=== PATIENT | female | born 1990 | race Hispanic/Latino ===

== ENCOUNTER 2018-10-18 07:30 | Emergency (ER) | payer SELFPAY ==
[2018-10-18] MEDS ORDERED: ONDANSETRON 4 MG/2 ML VIAL ONE (08:15)
[2018-10-18] MEDS ORDERED: MECLIZINE HCL 12.5 MG TAB ONE (08:15)
[2018-10-18] MEDS ORDERED: NA CHLORIDE 0.9% 1,000 ML ONE (08:15)
[2018-10-18 08:35] LABS: Absolute Monocytes 0.4 K/uL (0.1-1.3); Absolute Neutrophil 4.1 K/uL (1.8-8.0); Basophils % 0.9 % (0-1.3); Eosinophils % 0.8 % (0-4.4); Hematocrit 39.4 % (36.0-45.0); MCH 31.6 pg (27.0-35.0); MCV 92.8 fL (80-100); MPV 8.8 fL (7.6-11.3); Monocytes % 6.3 % (3.3-12.3); RBC Red Blood Cell Count 4.24 M/uL (3.86-4.86)
[2018-10-18 08:45] LABS: Albumin 3.6 g/dL (3.4-5.0); Bilirubin Total 0.3 mg/dL (0.2-1.0); Potassium 3.8 mmol/L (3.5-5.1); Protein, Total 7.9 g/dL (6.4-8.2)
--- NOTE | 2018-10-18 08:50 | ER ---
Nurse's Notes [facility] Name: Howie Wong Age: 27 yrs Sex: Female : 1990 Arrival Date: 10/18/2018 Time: 07:39 Bed 19 Private MD: None, None Diagnosis: Dizziness and giddiness;Vertiginous syndromes in diseases classified elsewhere, unspecified ear Presentation: 10/18 07:49 Presenting complaint: Patient states: Woke up at 0440 this AM with dizziness, nausea ss and bilateral hand tingling. Pt denies pain. Transition of care: patient was not received from another setting of care. Onset of symptoms was October 18, 2018 at 04:40. Risk Assessment: Do you want to hurt yourself or someone else? Patient reports no desire to harm self or others. Initial Sepsis Screen: Does the patient meet any 2 criteria? No. Patient's initial sepsis screen is negative. Does the patient have a suspected source of infection? No. Patient's initial sepsis screen is negative. Care prior to arrival: None. 07:49 Method Of Arrival: Wheelchair ss 07:49 Acuity: CRISTINA 3 ss RN ACUTE DIALYSIS: 08:35 LMP 10/18/2018 em Historical: - Allergies: 07:52 No Known Allergies; ss - Home Meds: 07:52 None [Active]; ss - PMHx: 07:52 Asthma; ss - PSHx: 07:52 ; ss - Immunization history:: Adult Immunizations up to date. - Social history:: Smoking status: Patient/guardian denies using tobacco. - Ebola Screening: : Patient denies exposure to infectious person Patient denies travel to an Ebola-affected area in the 21 days before illness onset. Screenin:56 Abuse screen: Denies threats or abuse. Nutritional screening: No deficits noted. em Tuberculosis screening: No symptoms or risk factors identified. Fall Risk None identified. Assessment: 08:05 General: Appears in no apparent distress. comfortable, Behavior is calm, cooperative, em anxious. Pain: Denies pain. Neuro: Level of Consciousness is awake, alert, obeys commands, Oriented to person, place, time, situation, Speech is normal, Reports dizziness, numbness in right hand and left hand paresthesias Denies blurred vision headache. Cardiovascular: Denies chest pain, shortness of breath, Capillary refill < 3 seconds Patient's skin is warm and dry. Respiratory: Airway is patent Respiratory effort is even, unlabored, Respiratory pattern is regular, symmetrical, Breath sounds are clear bilaterally. GI: Abdomen is round non-distended, Abd is soft and non tender X 4 quads. : No signs and/or symptoms were reported regarding the genitourinary system. EENT: No signs and/or symptoms were reported regarding the EENT system. Derm: Skin is intact, is healthy with good turgor, Skin is pink, warm \T\ dry. Musculoskeletal: Circulation, motion, and sensation intact. Range of motion: intact in all extremities. 08:15 Reassessment: The previous assessment is accurate, call light remains within reach. ss 08:46 Reassessment: reports dizziness when pt sat up to go to the restroom, orthostatic BP em taken, provider notified, will continue to monitor. 08:50 Reassessment: Patient appears in no apparent distress at this time. pt ambulated to em restroom with assistance from significant other, reports dizziness worse with standing, provider notified. 09:06 Reassessment: Patient appears in no apparent distress at this time. Patient and/or em family updated on plan of care and expected duration. Pain level reassessed. Patient is alert, oriented x 3, equal unlabored respirations, skin warm/dry/pink. pt will be discharged after completion of IV 1 L NS. 09:47 Reassessment: Patient appears in no apparent distress at this time. Patient and/or em family updated on plan of care and expected duration. Pain level reassessed. Patient is alert, oriented x 3, equal unlabored respirations, skin warm/dry/pink. Patient denies pain at this time. Patient states feeling better. Patient states symptoms have improved. Vital Signs: 07:52 BP 118 / 70; Pulse 64; Resp 16; Temp 98.1(O); Pulse Ox 99% on R/A; Height 5 ft. 6 in. ss (167.64 cm); Pain 0/10; 08:33 BP 117 / 76 Supine; Pulse 59; Resp 18; Pulse Ox 100% on R/A; Pain 0/10; em 08:50 BP 112 / 81 Supine; Pulse 65; em 08:50 BP 115 / 57 Standing; Pulse 66; em 09:47 BP 102 / 61; Pulse 53; Resp 16; Pulse Ox 99% on R/A; em ED Course: 07:39 Patient arrived in ED. dl4 07:40 None, None is Private Physician. dl4 07:41 Orlin Escudero MD is Attending Physician. marie 07:46 Praveen Hutchison LVN is Primary Nurse. em 07:52 Triage completed. ss 07:52 Arm band placed on right wrist. ss 07:56 Patient has correct armband on for positive identification. Placed in gown. Bed in low em position. Call light in reach. Adult w/ patient. 08:10 Initial lab(s) drawn, by me, sent to lab. Inserted saline lock: 20 gauge in right em antecubital area, using aseptic technique. Blood collected. 08:50 Eros Ferrera MD is Referral Physician. marie 09:47 No provider procedures requiring assistance completed. IV discontinued, intact, em bleeding controlled, No redness/swelling at site. Pressure dressing applied. Administered Medications: 08:10 Drug: Zofran 4 mg Route: IVP; Site: right antecubital; ss 09:03 Follow up: Response: No adverse reaction; Nausea is decreased em 08:12 Drug: NS 0.9% 1000 ml Route: IV; Rate: 1 bolus; Site: right antecubital; em 09:46 Follow up: IV Status: Completed infusion; IV Intake: 1000ml em 08:12 Drug: Meclizine 50 mg Route: PO; em 09:46 Follow up: Response: No adverse reaction; Marked relief of symptoms em Intake: 09:46 IV: 1000ml; Total: 1000ml. em Outcome: 08:50 Discharge ordered by . marie 09:47 Discharged to home ambulatory, with family. em 09:47 Condition: good 09:47 Discharge instructions given to patient, family, Instructed on discharge instructions, follow up and referral plans. medication usage, Demonstrated understanding of instructions, follow-up care, medications, Prescriptions given X 2. 09:48 Patient left the ED. em Signatures: Orlin Escudero MD MD cha Munoz, Edgar, WASHERY ENGINEER WASHERY ENGINEER em Ligia Gomez, EVIE RN Rene Brian dl4 Corrections: (The following items were deleted from the chart) 09:03 08:33 BP 117 / 76; Pulse 59bpm; Resp 18bpm; Pulse Ox 100% RA; Pain 0/10; em em
--- NOTE | 2018-10-18 08:50 | EDPHYS ---
Physician Documentation [facility] Name: Howie Wong Age: 27 yrs Sex: Female : 1990 Arrival Date: 10/18/2018 Time: 07:39 Bed 19 Private MD: None, None ED Physician Orlin Escudero HPI: 10/18 08:02 This 27 yrs old Female presents to ER via Wheelchair with complaints of marie Vomiting, Hand Numbness. 08:02 The patient presents to the emergency department with nausea, vomiting. Onset: The marie symptoms/episode began/occurred today. Possible causes: unknown. 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 - Social history:: Smoking status: Patient/guardian denies using tobacco. - Ebola Screening: : Patient denies exposure to infectious person Patient denies travel to an Ebola-affected area in the 21 days before illness onset. ROS: 08:03 Constitutional: Negative for fever, chills, and weight loss, Eyes: Negative for injury, marie pain, redness, and discharge, ENT: Negative for injury, pain, and discharge, Neck: Negative for injury, pain, and swelling, Cardiovascular: Negative for chest pain, palpitations, and edema, Respiratory: Negative for shortness of breath, cough, wheezing, and pleuritic chest pain, Abdomen/GI: Negative for abdominal pain, nausea, vomiting, diarrhea, and constipation, Back: Negative for injury and pain, : Negative for injury, bleeding, discharge, and swelling, MS/Extremity: Negative for injury and deformity, Skin: Negative for injury, rash, and discoloration, Psych: Negative for depression, anxiety, suicide ideation, homicidal ideation, and hallucinations, Endocrine: Negative for neck swelling, polydipsia, polyuria, polyphagia, and marked weight changes, Hematologic/Lymphatic: Negative for swollen nodes, abnormal bleeding, and unusual bruising. 08:03 Neuro: Positive for dizziness. Exam: 08:03 Constitutional: This is a well developed, well nourished patient who is awake, alert, marie and in no acute distress. Head/Face: Normocephalic, atraumatic. Eyes: Pupils equal round and reactive to light, extra-ocular motions intact. Lids and lashes normal. Conjunctiva and sclera are non-icteric and not injected. Cornea within normal limits. Periorbital areas with no swelling, redness, or edema. ENT: Nares patent. No nasal discharge, no septal abnormalities noted. Tympanic membranes are normal and external auditory canals are clear. Oropharynx with no redness, swelling, or masses, exudates, or evidence of obstruction, uvula midline. Mucous membranes moist. Neck: Trachea midline, no thyromegaly or masses palpated, and no cervical lymphadenopathy. Supple, full range of motion without nuchal rigidity, or vertebral point tenderness. No Meningismus. Chest/axilla: Normal chest wall appearance and motion. Nontender with no deformity. No lesions are appreciated. Cardiovascular: Regular rate and rhythm with a normal S1 and S2. No gallops, murmurs, or rubs. Normal PMI, no JVD. No pulse deficits. Respiratory: Lungs have equal breath sounds bilaterally, clear to auscultation and percussion. No rales, rhonchi or wheezes noted. No increased work of breathing, no retractions or nasal flaring. Abdomen/GI: Soft, non-tender, with normal bowel sounds. No distension or tympany. No guarding or rebound. No evidence of tenderness throughout. Back: No spinal tenderness. No costovertebral tenderness. Full range of motion. Skin: Warm, dry with normal turgor. Normal color with no rashes, no lesions, and no evidence of cellulitis. MS/ Extremity: Pulses equal, no cyanosis. Neurovascular intact. Full, normal range of motion. Psych: Awake, alert, with orientation to person, place and time. Behavior, mood, and affect are within normal limits. 08:03 Neuro: Exam negative for acute changes, focal neuro deficits, motor deficits, Orientation: is normal, appropriate for stated age, no acute changes, Mentation: is normal, appropriate for stated age, no acute changes, Memory: is normal, appropriate for stated age, Cranial nerves: grossly normal, is grossly normal based on the patient's age, no acute changes, Cerebellar function: normal finger to nose testing, heel to hong testing is normal, Motor: is normal, is grossly normal based on the patient's age, no acute changes, moves all fours, strength is normal, Gait: not tested. Deep tendon reflexes are 2+ (normal) in the bilateral brachioradialis, bicep, tricep and patellar and Achilles tendons. Vital Signs: 07:52 BP 118 / 70; Pulse 64; Resp 16; Temp 98.1(O); Pulse Ox 99% on R/A; Height 5 ft. 6 in. ss (167.64 cm); Pain 0/10; 08:33 BP 117 / 76 Supine; Pulse 59; Resp 18; Pulse Ox 100% on R/A; Pain 0/10; em 08:50 BP 112 / 81 Supine; Pulse 65; em 08:50 BP 115 / 57 Standing; Pulse 66; em 09:47 BP 102 / 61; Pulse 53; Resp 16; Pulse Ox 99% on R/A; em MDM: 07:41 Patient medically screened. [facility] 08:05 Data reviewed: vital signs, nurses notes, lab test result(s), CBC, electrolytes, [facility] hepatic panel, urinalysis. 10/18 08:02 Order name: CBC with Diff; Complete Time: 09:07 [facility] 08 08:02 Order name: Comprehensive Metabolic Panel; Complete Time: 08:49 [facility] 10/18 08:02 Order name: Urine Dipstick-Ancillary (obtain specimen); Complete Time: 09:03 [facility] 08 08:02 Order name: Urine Test (obtain specimen); Complete Time: 09:03 [facility] Administered Medications: 08:10 Drug: Zofran 4 mg Route: IVP; Site: right antecubital; ss 09:03 Follow up: Response: No adverse reaction; Nausea is decreased em 08:12 Drug: NS 0.9% 1000 ml Route: IV; Rate: 1 bolus; Site: right antecubital; em 09:46 Follow up: IV Status: Completed infusion; IV Intake: 1000ml em 08:12 Drug: Meclizine 50 mg Route: PO; em 09:46 Follow up: Response: No adverse reaction; Marked relief of symptoms em Disposition: 10/18/18 08:50 Discharged to Home. Impression: Dizziness and giddiness, Vertiginous syndromes in diseases classified elsewhere, unspecified ear. - Condition is Stable. - Discharge Instructions: Benign Positional Vertigo, Dizziness, Vertigo, Vertigo, [id number]. - Prescriptions for Meclizine 25 mg Oral Tablet - take 1 tablet by ORAL route every 8 hours As needed; 30 tablet. Zofran 4 mg Oral Tablet - take 1 tablet by ORAL route every 12 hours As needed; 14 tablet. - Medication Reconciliation Form, Thank You Letter, Antibiotic Education, Prescription Opioid Use form. - Follow up: Private Physician; When: 2 - 3 days; Reason: Recheck today's complaints, Continuance of care, Re-evaluation by your physician. Follow up: Eros Ferrera MD; When: 2 - 3 days; Reason: Recheck today's complaints, Re-evaluation by your physician. - Problem is new. - Symptoms have improved. Signatures: Dispatcher [employer] EDOrlin Turcios MD MD cha Munoz, Edgar, SELLING MANAGER SELLING MANAGER em Ligia Gomez RN RN ss Corrections: (The following items were deleted from the chart) 08:50 08:50 10/18/2018 08:50 Discharged to Home. Impression: Dizziness and giddiness; marie Vertiginous syndromes in diseases classified elsewhere, unspecified ear. Condition is Stable. Discharge Instructions: Benign Positional Vertigo, Dizziness, Vertigo, Vertigo, [id number]. Prescriptions for Meclizine 25 mg Oral Tablet - take 1 tablet by ORAL route every 8 hours As needed; 30 tablet, Zofran 4 mg Oral Tablet - take 1 tablet by ORAL route every 12 hours As needed; 14 tablet. and Forms are Medication Reconciliation Form, Thank You Letter, Antibiotic Education, Prescription Opioid Use. Follow up: Private Physician; When: 2 - 3 days; Reason: Recheck today's complaints, Continuance of care, Re-evaluation by your physician. Problem is new. Symptoms have improved. marie 09:48 08:50 10/18/2018 08:50 Discharged to Home. Impression: Dizziness and giddiness; em Vertiginous syndromes in diseases classified elsewhere, unspecified ear. Condition is Stable. Discharge Instructions: Benign Positional Vertigo, Dizziness, Vertigo, Vertigo, [id number]. Prescriptions for Meclizine 25 mg Oral Tablet - take 1 tablet by ORAL route every 8 hours As needed; 30 tablet, Zofran 4 mg Oral Tablet - take 1 tablet by ORAL route every 12 hours As needed; 14 tablet. and Forms are Medication Reconciliation Form, Thank You Letter, Antibiotic Education, Prescription Opioid Use. Follow up: Private Physician; When: 2 - 3 days; Reason: Recheck today's complaints, Continuance of care, Re-evaluation by your physician. Follow up: Eros Ferrera; When: 2 - 3 days; Reason: Recheck today's complaints, Re-evaluation by your physician. Problem is new. Symptoms have improved. marie
== END 2018-10-18 09:48 | disposition home or self-care (01) ==
LOC: ER 07:30
DX: H81.90 Unspecified disorder of vestibular function, unspecified ear (principal)
CPT/HCPCS: 36415; 80053; 85025; 96361; 96374; 99284; J2405; J7030

== ENCOUNTER 2018-12-01 20:10 | Emergency (ER) | payer SELFPAY ==
[2018-12-01] MEDS ORDERED: ALBUTEROL 2.5 MG/3 ML NEB SOL ONE (20:33)
[2018-12-01] MEDS ORDERED: IPRATROPIUM BROM 0.5MG/2.5ML ONE (20:33)
[2018-12-01] MEDS ORDERED: KETOROLAC 30 MG/ML INJ ONE (20:49)
[2018-12-01] MEDS ORDERED: METHYLPREDNISOLONE 125 MG INJ ONE (20:49)
--- NOTE | 2018-12-01 21:28 | RAD REPORT ---
EXAM DESCRIPTION: RAD - Chest Single View - 12/01/2018 9:22 pm CLINICAL HISTORY: DYSPNEA Chest pain. COMPARISON: No comparisons FINDINGS: Portable technique limits examination quality. The lungs are grossly clear. The heart is normal in size. No displaced fractures.Mild dextroscoliosis of the thoracic spine. IMPRESSION: No acute intrathoracic process suspected.
--- NOTE | 2018-12-01 22:07 | ER ---
Nurse's Notes [facility] Name: Howie Wong Age: 27 yrs Sex: Female : 1990 Arrival Date: 12/01/2018 Time: 20:14 Bed 20 Private MD: Diagnosis: Asthma;Strain of muscle and tendon of back wall of thorax Presentation: 12/01 20:26 Presenting complaint: Patient states: back pain X5 days increased with deep breath. pt ak1 out of inhaler X2 weeks due to being OOT. Transition of care: patient was not received from another setting of care. Onset of symptoms is unknown. Risk Assessment: Do you want to hurt yourself or someone else? Patient reports no desire to harm self or others. Initial Sepsis Screen: Does the patient meet any 2 criteria? No. Patient's initial sepsis screen is negative. Does the patient have a suspected source of infection? No. Patient's initial sepsis screen is negative. Care prior to arrival: None. 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 - Social history:: Smoking status: Patient/guardian denies using tobacco. - Ebola Screening: : No symptoms or risks identified at this time. Screenin:31 Abuse screen: Denies threats or abuse. Nutritional screening: No deficits noted. tl2 Tuberculosis screening: No symptoms or risk factors identified. Fall Risk None identified. Assessment: 20:31 General: Appears in no apparent distress. uncomfortable, Behavior is cooperative, tl2 appropriate for age, anxious. Pain: Complains of pain in left scapular area and right scapular area Pain radiates to chest Pain began 2-3 days ago. Neuro: Level of Consciousness is awake, alert, obeys commands, Oriented to person, place, time, situation. Cardiovascular: Capillary refill < 3 seconds. Respiratory: Airway is patent Respiratory effort is even, unlabored, Respiratory pattern is regular, symmetrical, Parent/caregiver reports the patient having pain with respiration. GI: No signs and/or symptoms were reported involving the gastrointestinal system. : No signs and/or symptoms were reported regarding the genitourinary system. Derm: Skin is pink, warm \T\ dry. 21:12 Reassessment: Patient appears in no apparent distress at this time. Patient and/or tl2 family updated on plan of care and expected duration. Pain level reassessed. Patient is alert, oriented x 3, equal unlabored respirations, skin warm/dry/pink. awaiting xray results Patient states feeling better. Patient states symptoms have improved. 22:18 Reassessment: Patient appears in no apparent distress at this time. Patient and/or tl2 family updated on plan of care and expected duration. Pain level reassessed. Patient is alert, oriented x 3, equal unlabored respirations, skin warm/dry/pink. pt verbalized understanding of discharge instructions, need for follow up and prescription usage. Vital Signs: 20:27 BP 115 / 71; Pulse 79; Resp 18; Temp 99.2(O); Pulse Ox 100% on R/A; Weight 77.11 kg tl2 (R); Height 5 ft. 6 in. (167.64 cm) (R); Pain 8/10; 21:15 Pulse 91; Resp 18; Pulse Ox 98% on R/A; Pain 4/10; tl2 20:27 Body Mass Index 27.44 (77.11 kg, 167.64 cm) tl2 ED Course: 20:14 Patient arrived in ED. al2 20:19 Sergio Sharif MD is Attending Physician. tw4 20:27 Triage completed. ak1 20:27 Arm band placed on Patient placed in an exam room, on a stretcher, Patient notified of ak1 wait time. 20:30 Khadijah Hogue, EVIE is Primary Nurse. tl2 20:31 Patient has correct armband on for positive identification. Bed in low position. Call tl2 light in reach. Side rails up X 1. Pulse ox on. NIBP on. 20:31 Patient maintains SpO2 saturation greater than 95% on room air. tl2 21:23 Chest Single View XRAY In Process Unspecified. EDMS 22:18 No provider procedures requiring assistance completed. Patient did not have IV access tl2 during this emergency room visit. Administered Medications: 20:34 Drug: DuoNeb (3:1) (2.5 mg - 0.5 mg) 3 ml Route: Nebulizer; tl2 22:20 Follow up: Response: No adverse reaction; Marked relief of symptoms tl2 20:45 Drug: SOLU-Medrol 125 mg Route: IM; Site: right gluteus; tl2 22:20 Follow up: Response: No adverse reaction; Marked relief of symptoms tl2 20:45 Drug: TORadol 60 mg Route: IM; Site: left gluteus; tl2 21:30 Follow up: Response: No adverse reaction; Pain is decreased tl2 Outcome: 22:06 Discharge ordered by . tw4 22:18 Discharged to home ambulatory, with family. tl2 22:18 Condition: stable 22:18 Discharge instructions given to patient, family, Instructed on discharge instructions, follow up and referral plans. medication usage, Demonstrated understanding of instructions, follow-up care, medications, Prescriptions given X 4. 22:21 Patient left the ED. tl2 Signatures: Dispatcher [employer] EDMS Rama Francisco RN RN ak1 Khadijah Hogue RN RN tl2 Nan Ferrera Terrence, MD MD tw4 Corrections: (The following items were deleted from the chart) 20:31 20:27 Pulse 79bpm; Resp 18bpm; Pulse Ox 100% RA; Temp 99.2F Oral; 77.11 kg Reported; tl2 Height 5 ft. 6 in. Reported; BMI: 27.4; Pain 8/10; ak1 20:33 20:31 Oxygen administered via a nebulizer mask. tl2 tl2
--- NOTE | 2018-12-01 22:07 | EDPHYS ---
Physician Documentation [facility] Name: Howie Wong Age: 27 yrs Sex: Female : 1990 Arrival Date: 12/01/2018 Time: 20:14 Bed 20 Private MD: ED Physician Sergio Sharif HPI: 12/02 04:02 This 27 yrs old Female presents to ER via Ambulatory with complaints of Asthma tw4 Exacerbation, Chest Pain. 04:02 The patient presents to the emergency department with wheezing, Current therapy: tw4 albuterol inhaler, that began without any particular precipitating event, the patient was reported to have audible wheezing, chest tightness. 04:03 Onset: The symptoms/episode began/occurred 3 day(s) ago. Modifying factors: The tw4 symptoms are alleviated by nothing, the symptoms are aggravated by nothing. Associated signs and symptoms: The patient has no apparent associated signs or symptoms. Severity of symptoms: At their worst the symptoms were mild in the emergency department the symptoms are unchanged. The patient has not experienced similar symptoms in the past. DIGITAL IMAGER: 12/01 20:27 LMP 10/30/2018 ak1 Historical: - Allergies: 20:27 No Known Allergies; ak1 - PMHx: 20:27 Asthma; ak1 - PSHx: 20:27 ; ak1 - Immunization history:: Adult Immunizations up to date. - Social history:: Smoking status: Patient/guardian denies using tobacco. - Ebola Screening: : No symptoms or risks identified at this time. ROS: 12/02 04:03 Constitutional: Negative for fever, chills, and weight loss, Eyes: Negative for injury, tw4 pain, redness, and discharge, Cardiovascular: Negative for chest pain, palpitations, and edema, Respiratory: Negative for shortness of breath, cough, wheezing, and pleuritic chest pain, Abdomen/GI: Negative for abdominal pain, nausea, vomiting, diarrhea, and constipation, Back: Negative for injury and pain, MS/Extremity: Negative for injury and deformity, Skin: Negative for injury, rash, and discoloration. Exam: 04:03 Constitutional: This is a well developed, well nourished patient who is awake, alert, tw4 and in no acute distress. Head/Face: Normocephalic, atraumatic. Chest/axilla: Normal chest wall appearance and motion. Nontender with no deformity. No lesions are appreciated. Cardiovascular: Regular rate and rhythm with a normal S1 and S2. No gallops, murmurs, or rubs. Normal PMI, no JVD. No pulse deficits. 04:03 Abdomen/GI: Soft, non-tender, with normal bowel sounds. No distension or tympany. No guarding or rebound. No evidence of tenderness throughout. 04:03 MS/ Extremity: Pulses equal, no cyanosis. Neurovascular intact. Full, normal range of motion. Neuro: Awake and alert, GCS 15, oriented to person, place, time, and situation. Cranial nerves II-XII grossly intact. Motor strength 5/5 in all extremities. Sensory grossly intact. Cerebellar exam normal. Normal gait. 04:03 Respiratory: mild respiratory distress is noted, Respirations: labored breathing, that is mild, Breath sounds: wheezing: expiratory is heard diffusely. 04:03 Back: pain, that is mild, of the right subscapular area, ROM is painless, normal spinal alignment noted, muscle spasm, is appreciated in the right subscapular area. Vital Signs: 12/01 20:27 BP 115 / 71; Pulse 79; Resp 18; Temp 99.2(O); Pulse Ox 100% on R/A; Weight 77.11 kg tl2 (R); Height 5 ft. 6 in. (167.64 cm) (R); Pain 8/10; 21:15 Pulse 91; Resp 18; Pulse Ox 98% on R/A; Pain 4/10; tl2 20:27 Body Mass Index 27.44 (77.11 kg, 167.64 cm) tl2 MDM: 20:25 Patient medically screened. tw4 12/02 04:03 Differential diagnosis: acute asthma, exercise-induced asthma, reactive airway, URI. tw4 Antibiotic administration: Not indicated, the patient does not have an appreciated infiltrate. Data reviewed: vital signs, nurses notes. Data interpreted: Pulse oximetry: Interpretation: normal. Test interpretation: by ED physician or midlevel provider: plain radiologic studies. Counseling: I had a detailed discussion with the patient and/or guardian regarding: the historical points, exam findings, and any diagnostic results supporting the discharge/admit diagnosis, radiology results. Medication response: albuterol nebulizer treatment(s) markedly relieved the patient's wheezing. Medication response: Toradol markedly relieved the patient's pain. Response to treatment: the patient's symptoms have markedly improved after treatment, and as a result, I will discharge patient. Special discussion: I discussed with the patient/guardian in detail that at this point there is no indication for admission to the hospital. It is understood, however, that if the symptoms persist or worsen the patient needs to return immediately for re-evaluation. ED course: Pt states she felt better after breathing treatments and toradol. Will have pt followup with PCP and refil pts asthma medications. 12/01 20:37 Order name: Chest Single View XRAY; Complete Time: 22:04 tw4 Administered Medications: 12/01 20:34 Drug: DuoNeb (3:1) (2.5 mg - 0.5 mg) 3 ml Route: Nebulizer; tl2 22:20 Follow up: Response: No adverse reaction; Marked relief of symptoms tl2 20:45 Drug: SOLU-Medrol 125 mg Route: IM; Site: right gluteus; tl2 22:20 Follow up: Response: No adverse reaction; Marked relief of symptoms tl2 20:45 Drug: TORadol 60 mg Route: IM; Site: left gluteus; tl2 21:30 Follow up: Response: No adverse reaction; Pain is decreased tl2 Disposition: 12/01/18 22:06 Discharged to Home. Impression: Asthma, Strain of muscle and tendon of back wall of thorax. - Condition is Stable. - Discharge Instructions: Asthma, Acute Bronchospasm, Thoracic Strain, [id number]. - Prescriptions for Ibuprofen 800 mg Oral Tablet - take 1 tablet by ORAL route every 8 hours As needed take with food; 30 tablet. Cyclobenzaprine 10 mg Oral Tablet - take 1 tablet by ORAL route every 8 hours As needed; 30 tablet. Medrol (Porter) 4 mg Oral Tablets, Dose Pack - take 1 tablet by ORAL route as directed - follow package instructions; 1 packet. Albuterol Sulfate 90 mcg/actuation - inhale 1-2 puff by INHALATION route every 4-6 hours; 1 Inhaler. - Medication Reconciliation Form, Thank You Letter, Antibiotic Education, Prescription Opioid Use form. - Follow up: Private Physician; When: Upon discharge from the Emergency Department; Reason: Recheck today's complaints, Continuance of care. - Problem is new. - Symptoms have improved. Signatures: Dispatcher [employer] ED Rama Francisco, RN RN ak1 Khadijah Hogue RN RN tl2 Sergio Sharif MD MD tw4 Corrections: (The following items were deleted from the chart) 22:07 22:06 12/01/2018 22:06 Discharged to Home. Impression: Asthma. Condition is Stable. tw4 Forms are Medication Reconciliation Form, Thank You Letter, Antibiotic Education, Prescription Opioid Use. Follow up: Private Physician; When: Upon discharge from the Emergency Department; Reason: Recheck today's complaints, Continuance of care. Problem is new. Symptoms have improved. tw4 22: 22:07 12/01/2018 22:06 Discharged to Home. Impression: Asthma; Strain of muscle and tl2 tendon of back wall of thorax. Condition is Stable. Discharge Instructions: Asthma, Acute Bronchospasm, Thoracic Strain, [id number]. Prescriptions for Ibuprofen 800 mg Oral Tablet - take 1 tablet by ORAL route every 8 hours As needed take with food; 30 tablet, Cyclobenzaprine 10 mg Oral Tablet - take 1 tablet by ORAL route every 8 hours As needed; 30 tablet, Medrol (Porter) 4 mg Oral Tablets, Dose Pack - take 1 tablet by ORAL route as directed - follow package instructions; 1 packet, Albuterol Sulfate 90 mcg/actuation - inhale 1-2 puff by INHALATION route every 4-6 hours; 1 Inhaler. and Forms are Medication Reconciliation Form, Thank You Letter, Antibiotic Education, Prescription Opioid Use. Follow up: Private Physician; When: Upon discharge from the Emergency Department; Reason: Recheck today's complaints, Continuance of care. Problem is new. Symptoms have improved. tw4
== END 2018-12-01 22:21 | disposition home or self-care (01) ==
LOC: ER 20:10
DX: J45.909 Unspecified asthma, uncomplicated (principal); S29.012A Strain of muscle and tendon of back wall of thorax, initial encounter
CPT/HCPCS: 71045; 94640; 96372; 99285; J2930